=== PATIENT | male | born 1945 | race Caucasian/White ===

== ENCOUNTER 2016-10-16 10:24 | Observation (INO) | payer MEDICARE, BC ==
[2016-10-16] MEDS ORDERED: Ondansetron 4 MG/2 ML SDV IVPUSH ONE (10:57)
[2016-10-16] MEDS ORDERED: Sodium Chloride 0.9% 1,000 ML IV ONE (10:57)
--- NOTE | 2016-10-16 10:58 | EDM.PDOC ---
ED HPI GENERAL MEDICAL PROBLEM - General Chief Complaint: Gastrointestinal Problem Stated Complaint: STOMACH ACHE Time Seen by Provider: 10/16/16 10:40 Source of Information: Reports: Patient History Limitations: Reports: No Limitations - History of Present Illness INITIAL COMMENTS - FREE TEXT/NARRATIVE: History of present illness: [71-year-old male comes in with complaint of abdominal pain since yesterday at 3 :00. Patient indicates he has some nausea without vomiting and denies any diarrhea. Patient thought it might be food poisoning but since it has continued on into this morning he came in with desire to be evaluated] Review of systems: As per history of present illness and below otherwise all systems reviewed and negative. Past medical history: As per history of present illness and as reviewed below otherwise noncontributory. Surgical history: As per history of present illness and as reviewed below otherwise noncontributory. Social history: No reported history of drug or alcohol abuse. Family history: As per history of present illness and as reviewed below otherwise noncontributory. Physical exam: HEENT: Atraumatic, normocephalic, pupils reactive, negative for conjunctival pallor or scleral icterus, mucous membranes moist, throat clear, neck supple, nontender, trachea midline. Lungs: Clear to auscultation, breath sounds equal bilaterally, chest nontender. Heart: S1S2, regular, negative for clicks, rubs, or JVD. Abdomen: Firm protuberant abdomen that is diffusely tender throughout but right is notably more tender than left. Negative for masses or hepatosplenomegaly. Negative for costovertebral tenderness. Pelvis: Stable nontender. Genitourinary: Deferred. Rectal: Deferred. Extremities: Atraumatic, negative for cords or calf pain. Neurovascular unremarkable. Neuro: Awake, alert, oriented. Cranial nerves II through XII unremarkable. Cerebellum unremarkable. Motor and sensory unremarkable throughout. Exam nonfocal. Spoke with Dr. Paredes and she is present to evaluate patient at the bedside. Diagnostics: [CBC, CMP, lipase, amylase] Therapeutics: [IV fluid, Zofran, Zosyn] Impression: [#1 acute appendicitis] Plan: [Mid to Dr. Paredes for a planned lap appendectomy] Definitive disposition and diagnosis as appropriate pending reevaluation and review of above. Lower Abdomen Pain Score (Numeric/FACES): 7 - Related Data Allergies Allergy/AdvReac Type Severity Reaction Status Date / Time No Known Allergies Allergy Verified 10/16/16 10:31 Home Meds: Home Meds . [No Known Home Meds] 09/30/14 [History] Past Medical History Respiratory History: Reports: Other (See Below) Other Respiratory History: Reports believes he has sleep apnea, no machine Other Genitourinary History: Nocturia - Past Surgical History GI Surgical History: Reports: Cholecystectomy Other Neurological Surgeries/Procedures: Back surgery Other Musculoskeletal Surgeries/Procedures:: Rotator Cuff repair, BAck surgery Social & Family History - Family History Family Medical History: Noncontributory - Tobacco Use Smoking Status *Q: Former Smoker Used Tobacco, but Quit: Yes Month Tobacco Last Used: 20years ago - Caffeine Use Caffeine Use: Reports: Coffee - Alcohol Use Days Per Week of Alcohol Use: 7 Number of Drinks Per Day: 2 Total Drinks Per Week: 14 - Recreational Drug Use Recreational Drug Use: No Drug Use in Last 12 Months: No ED ROS GENERAL - Review of Systems Review Of Systems: See Below (History of present illness) ED EXAM, GI/ABD - Physical Exam Exam: See Below (History of present illness) Course - Vital Signs Last Recorded V/S: Last Vital Signs Temp 36.6 C 10/16/16 10:33 Pulse 107 H 10/16/16 10:33 Resp 16 10/16/16 10:33 BP 124/89 10/16/16 10:33 Pulse Ox 98 10/16/16 10:33 - Orders/Labs/Meds Orders: Active Orders 24 hr Category Date Time Status Abdomen Pelvis w Cont [CT] Stat Exams 10/16/16 11:46 Ordered UA W/MICROSCOPIC [URIN] Stat Lab 10/16/16 10:57 Uncollected Labs: Laboratory Tests 10/16/16 10/16/16 Range/Units 11:06 11:06 WBC 21.74 H (4.0-11.0) K/uL RBC 5.31 (4.50-5.90) M/uL Hgb 16.0 (13.0-17.0) g/dL Hct 47.5 (38.0-50.0) % MCV 89.5 (80.0-98.0) fL MCH 30.1 (27.0-32.0) pg MCHC 33.7 (31.0-37.0) g/dL RDW Std Deviation 45.8 (28.0-62.0) fl RDW Coeff of Sunday 14 (11.0-15.0) % Plt Count 253 (150-400) K/uL MPV 10.60 (7.40-12.00) fL Neut % (Auto) 84.8 H (48.0-80.0) % Lymph % (Auto) 6.0 L (16.0-40.0) % [place] % (Auto) 9.2 (0.0-15.0) % Eos % (Auto) 0.0 (0.0-7.0) % Baso % (Auto) 0.0 (0.0-1.5) % Neut # (Auto) 18.4 H (1.4-5.7) K/uL Lymph # (Auto) 1.3 (0.6-2.4) K/uL [place] # (Auto) 2.0 H (0.0-0.8) K/uL Eos # (Auto) 0.0 (0.0-0.7) K/uL Baso # (Auto) 0.0 (0.0-0.1) K/uL Nucleated RBC % 0.0 /100WBC Nucleated RBCs # 0 K/uL Sodium 139 (136-146) mmol/L Potassium 4.8 (3.5-5.1) mmol/L Chloride 105 (98-110) mmol/L Carbon Dioxide 22 (21-31) mmol/L BUN 21 (6.0-23.0) mg/dL Creatinine 1.2 (0.6-1.5) mg/dL Est Cr Clr Drug Dosing 61.88 mL/min Estimated GFR (MDRD) > 60.0 ml/min Glucose 117 H (60-110) mg/dL Calcium 9.9 (8.8-10.8) mg/dL Total Bilirubin 1.1 (0.1-1.5) mg/dL AST 34 (5-40) IU/L ALT 56 H (8-54) IU/L Alkaline Phosphatase 80 (40-150) Total Protein 7.7 (6.0-8.0) g/dL Albumin 4.2 (3.4-4.8) g/dL Globulin 3.5 (2.0-3.5) g/dL Albumin/Globulin Ratio 1.2 L (1.3-2.8) Amylase 43 (10-90) U/L Lipase 13 (7-80) U/L Meds: Medications Discontinued Medications Generic Name Dose Route Start Last Admin Trade Name Luke PRN Reason Stop Dose Admin Sodium Chloride 1,000 mls @ 999 mls/hr 10/16/16 10:57 10/16/16 11:17 Normal Saline IV 10/16/16 11:57 999 mls/hr STAT ONE Administration Iopamidol 100 ml 10/16/16 12:19 10/16/16 12:27 Isovue Multipack-370 (76%) IVPUSH 10/16/16 12:20 100 ml ONETIME STA Administration Ketorolac Tromethamine 30 mg 10/16/16 12:09 10/16/16 12:27 Toradol IVPUSH 10/16/16 12:10 30 mg ONETIME ONE Administration Morphine Sulfate 2 mg 10/16/16 12:09 10/16/16 12:30 Morphine IVPUSH 10/16/16 12:10 2 mg ONETIME ONE Administration Ondansetron HCl 4 mg 10/16/16 10:57 10/16/16 11:18 Zofran IVPUSH 10/16/16 10:58 4 mg ONETIME ONE Administration Departure - Departure Time of Disposition: 14:01 Disposition: Admitted As Inpatient 68 Condition: Good Clinical Impression: Appendicitis - Discharge Information Referrals: PCP,None [Primary Care Provider] - Forms: ED Department Discharge - My Orders Last 24 Hours: My Active Orders 10/16/16 10:57 UA W/MICROSCOPIC [URIN] Stat 10/16/16 11:46 Abdomen Pelvis w Cont [CT] Stat - Assessment/Plan Last 24 Hours: My Active Orders 10/16/16 10:57 UA W/MICROSCOPIC [URIN] Stat 10/16/16 11:46 Abdomen Pelvis w Cont [CT] Stat
[2016-10-16 11:44] LABS: CHLORIDE,CL 105 mmol/L (98-110); SODIUM,NA 139 mmol/L (136-146)
[2016-10-16] MEDS ORDERED: Morphine 2 MG/ML Syringe IVPUSH ONE (12:09)
[2016-10-16] MEDS ORDERED: Ketorolac 30 MG/ML SDV IVPUSH ONE (12:09)
[2016-10-16] MEDS ORDERED: Iopamidol 755 MG/ML 500 ML Multipack Bottle IVPUSH STA (12:19)
[2016-10-16] MEDS ORDERED: Piperacillin/Tazobactam 3.375 GM in Sodium Chloride 0.9% 50 ML IV ONE ×2 (14:02→17:00)
--- NOTE | 2016-10-16 14:18 | PCM.HP ---
H&P History of Present Illness - General Date of Service: 10/16/16 Admit Problem/Dx: Admission Diagnosis/Problem Admission Diagnosis/Problem Appendicitis Source of Information: Patient History Limitations: Reports: No Limitations - History of Present Illness Initial Comments - Free Text/Narative: Patient is a 71 year old male who presents with lower abdominal pain since 3 pm yesterday afternoon. It came on suddenly. It is made worse with movement and palpation. He describes it as a burning sensation. It is associated with chills , bloating and nausea. He has never had anything like this happen before. He is still passing gas and had a loose bowel movement this morning. The pain is similar in severity to an episode of acute cholecystitis he had several years back. My partner performed his laparoscopic cholecystectomy and repaired his umbilical hernia at the same time. 2 years ago he underwent a colonoscopy. He had one polyp removed. Before this he had no change in his bowel or bladder habits. Lower Abdomen Pain Score (Numeric/FACES): 7 - Related Data Allergies/Adverse Reactions: Allergies Allergy/AdvReac Type Severity Reaction Status Date / Time No Known Allergies Allergy Verified 10/16/16 10:31 Home Medications: Home Meds . [No Known Home Meds] 09/30/14 [History] Past Medical History Respiratory History: Reports: Other (See Below) Other Respiratory History: Reports believes he has sleep apnea, no machine Other Genitourinary History: Nocturia - Past Surgical History GI Surgical History: Reports: Cholecystectomy, Colonoscopy, Hernia, Abdominal, Hernia, Inguinal Other Neurological Surgeries/Procedures: Back surgery Other Musculoskeletal Surgeries/Procedures:: Rotator Cuff repair, BAck surgery Social & Family History - Family History Family Medical History: Noncontributory - Tobacco Use Smoking Status *Q: Former Smoker Used Tobacco, but Quit: Yes Month Tobacco Last Used: 20years ago - Caffeine Use Caffeine Use: Reports: Coffee - Alcohol Use Days Per Week of Alcohol Use: 7 Number of Drinks Per Day: 2 Total Drinks Per Week: 14 - Recreational Drug Use Recreational Drug Use: No Drug Use in Last 12 Months: No H&P Review of Systems - Review of Systems: Review Of Systems: ROS reveals no pertinent complaints other than HPI. Exam - Exam Exam: See Below - Vital Signs Vital Signs: Last Vital Signs Temp 36.6 C 10/16/16 10:33 Pulse 107 H 10/16/16 10:33 Resp 16 10/16/16 10:33 BP 124/89 10/16/16 10:33 Pulse Ox 98 10/16/16 10:33 Weight: 95 kg - Exam General: Alert, Oriented HEENT: Hearing Intact, Mucosa Moist & [place], Nares Patent, Posterior Pharynx Clear, Pupils Equal, Pupils Reactive Neck: Supple, Trachea Midline Lungs: Clear to Auscultation, Normal Respiratory Effort Cardiovascular: Regular Rate, Regular Rhythm GI/Abdominal Exam: Soft, Distended, Tender ([place]) Extremities: Normal Inspection - Patient Data Lab Results Last 24 hrs: Laboratory Results - last 24 hr 10/16/16 10/16/16 10/16/16 Range/Units 11:06 11:06 14:05 WBC 21.74 H (4.0-11.0) K/uL RBC 5.31 (4.50-5.90) M/uL Hgb 16.0 (13.0-17.0) g/dL Hct 47.5 (38.0-50.0) % MCV 89.5 (80.0-98.0) fL MCH 30.1 (27.0-32.0) pg MCHC 33.7 (31.0-37.0) g/dL RDW Std Deviation 45.8 (28.0-62.0) fl RDW Coeff of Sunday 14 (11.0-15.0) % Plt Count 253 (150-400) K/uL MPV 10.60 (7.40-12.00) fL Neut % (Auto) 84.8 H (48.0-80.0) % Lymph % (Auto) 6.0 L (16.0-40.0) % [place] % (Auto) 9.2 (0.0-15.0) % Eos % (Auto) 0.0 (0.0-7.0) % Baso % (Auto) 0.0 (0.0-1.5) % Neut # (Auto) 18.4 H (1.4-5.7) K/uL Lymph # (Auto) 1.3 (0.6-2.4) K/uL [place] # (Auto) 2.0 H (0.0-0.8) K/uL Eos # (Auto) 0.0 (0.0-0.7) K/uL Baso # (Auto) 0.0 (0.0-0.1) K/uL Nucleated RBC % 0.0 /100WBC Nucleated RBCs # 0 K/uL Sodium 139 (136-146) mmol/L Potassium 4.8 (3.5-5.1) mmol/L Chloride 105 (98-110) mmol/L Carbon Dioxide 22 (21-31) mmol/L BUN 21 (6.0-23.0) mg/dL Creatinine 1.2 (0.6-1.5) mg/dL Est Cr Clr Drug Dosing 61.88 mL/min Estimated GFR (MDRD) > 60.0 ml/min Glucose 117 H (60-110) mg/dL Calcium 9.9 (8.8-10.8) mg/dL Total Bilirubin 1.1 (0.1-1.5) mg/dL AST 34 (5-40) IU/L ALT 56 H (8-54) IU/L Alkaline Phosphatase 80 (40-150) Total Protein 7.7 (6.0-8.0) g/dL Albumin 4.2 (3.4-4.8) g/dL Globulin 3.5 (2.0-3.5) g/dL Albumin/Globulin Ratio 1.2 L (1.3-2.8) Amylase 43 (10-90) U/L Lipase 13 (7-80) U/L Urine Color YELLOW Urine Appearance CLEAR Urine pH 5.5 (5.0-8.0) Ur Specific [place] 1.010 (1.001-1.035) Urine Protein NEGATIVE (NEGATIVE) mg/dL Urine Glucose (UA) NEGATIVE (NEGATIVE) mg/dL Urine Ketones 15 H (NEGATIVE) mg/dL Urine Occult Blood NEGATIVE (NEGATIVE) Urine Nitrite NEGATIVE (NEGATIVE) Urine Bilirubin NEGATIVE (NEGATIVE) Urine Urobilinogen 1.0 (<2.0) EU/dL Ur Leukocyte Esterase NEGATIVE (NEGATIVE) Result Diagrams: 10/16/16 11:06 10/16/16 11:06 *Q Meaningful Use (ADM) - VTE *Q VTE Criteria *Q: - Stroke *Q Stroke Criteria *Q: - AMI *Q AMI Criteria *Q: - Problem List (1) Appendicitis SNOMED Code(s): 84971658 ICD Code: K37 - UNSPECIFIED APPENDICITIS Status: Acute Current Visit: Yes Problem List Initiated/Reviewed/Updated: Yes Orders Last 24hrs: Active Orders 24 hr Category Date Time Status Patient Status [ADT] Stat ADT 10/16/16 14:03 Active Abdomen Pelvis w Cont [CT] Stat Exams 10/16/16 11:46 Taken UA W/MICROSCOPIC [URIN] Stat Lab 10/16/16 14:05 Results Piperacillin/Tazobactam [Piperacil-Tazobact] 3.375 gm Med 10/16/16 14:02 Active Sodium Chloride 0.9% [Normal Saline] 50 ml IV ONETIME Medication Orders Piperacillin Sod/Tazobactam (Sod 3.375 gm/ Sodium Chloride) 50 mls @ 100 mls/ hr IV ONETIME ONE Stop: 10/16/16 14:31 Assessment/Plan Comment:: Patient had a CT performed that showed evidence of a fecolith and dilated appendix. He has a WBC of 20K with a left shift. The patient and I discussed the pathophysiology of acute appendicitis. The treatment for this is removal of the appendix. We discussed the laparoscopic and open approach. Should I be unable to perform this safely I will convert from laparoscopic to open. We discussed the risks including bleeding, infection, or damage to surrounding structures. I explained that there is a small possibility of this being caused by a malignancy. Should that be the case he may need a more extensive procedure. The patient verbalized understanding and wishes to proceed. He will be admitted post operatively for monitoring. He last ate yesterday afternoon. Will keep him NPO, give IVF, and IV antibiotics.
[2016-10-16] MEDS ORDERED: Bupivacaine 0.5% 30 ML SDV ONE (14:20)
[2016-10-16] MEDS ORDERED: Lidocaine 2% 5 ML SDV ONE (14:32)
[2016-10-16] MEDS ORDERED: Succinylcholine/Normal Saline 200 MG/10 ML Syringe ONE (14:32)
[2016-10-16] MEDS ORDERED: Dexamethasone 4 MG/ML 5 ML MDV ONE (14:32)
[2016-10-16] MEDS ORDERED: Rocuronium 10 MG/ML 10 ML Syringe ONE (14:32)
[2016-10-16] MEDS ORDERED: Ondansetron 4 MG/2 ML SDV ONE (14:32)
[2016-10-16] MEDS ORDERED: Propofol 200 MG/20 ML SDV ONE (14:33)
[2016-10-16] MEDS ORDERED: fentaNYL 100 MCG/2 ML SDV ONE ×2 (14:33→15:34)
[2016-10-16] MEDS ORDERED: Midazolam 1 MG/ML 2 ML SDV ONE (14:33)
--- NOTE | 2016-10-16 14:47 | PCM.PREANE ---
Preanesthetic Assessment - Anesthesia/Transfusion/Family Hx Anesthesia History: Prior Anesthesia Without Reaction Other Type of Anesthesia Reaction Comment: Denies any known problem in past,no known family hx: problems Family History of Anesthesia Reaction: No - Review of Systems Gastrointestinal: Abdominal Pain, Nausea Other: Reports: None - Physical Assessment NPO Status Date: 10/16/16 NPO Status Time: 10:00 O2 Sat by Pulse Oximetry: 98 Respiratory Rate: 16 Vital Signs: Last Vital Signs Temp 36.6 C 10/16/16 10:33 Pulse 107 H 10/16/16 10:33 Resp 16 10/16/16 10:33 BP 124/89 10/16/16 10:33 Pulse Ox 98 10/16/16 10:33 Height: 5 ft 11 in Weight: 95 kg ASA Class: 2E Mental Status: Alert & Oriented x3 Dentition: Reports: Partial (bottom) Thyro-Mental Finger Breadths: 3 Mouth Opening Finger Breadths: 3 ROM/Head Extension: Full - Lab Values: Laboratory Last Values WBC 21.74 K/uL (4.0-11.0) H 10/16/16 11:06 RBC 5.31 M/uL (4.50-5.90) 10/16/16 11:06 Hgb 16.0 g/dL (13.0-17.0) 10/16/16 11:06 Hct 47.5 % (38.0-50.0) 10/16/16 11:06 MCV 89.5 fL (80.0-98.0) 10/16/16 11:06 MCH 30.1 pg (27.0-32.0) 10/16/16 11:06 MCHC 33.7 g/dL (31.0-37.0) 10/16/16 11:06 RDW Std Deviation 45.8 fl (28.0-62.0) 10/16/16 11:06 RDW Coeff of Sunday 14 % (11.0-15.0) 10/16/16 11:06 Plt Count 253 K/uL (150-400) 10/16/16 11:06 MPV 10.60 fL (7.40-12.00) 10/16/16 11:06 Neut % (Auto) 84.8 % (48.0-80.0) H 10/16/16 11:06 Lymph % (Auto) 6.0 % (16.0-40.0) L 10/16/16 11:06 [place] % (Auto) 9.2 % (0.0-15.0) 10/16/16 11:06 Eos % (Auto) 0.0 % (0.0-7.0) 10/16/16 11:06 Baso % (Auto) 0.0 % (0.0-1.5) 10/16/16 11:06 Neut # (Auto) 18.4 K/uL (1.4-5.7) H 10/16/16 11:06 Lymph # (Auto) 1.3 K/uL (0.6-2.4) 10/16/16 11:06 [place] # (Auto) 2.0 K/uL (0.0-0.8) H 10/16/16 11:06 Eos # (Auto) 0.0 K/uL (0.0-0.7) 10/16/16 11:06 Baso # (Auto) 0.0 K/uL (0.0-0.1) 10/16/16 11:06 Nucleated RBC % 0.0 /100WBC 10/16/16 11:06 Nucleated RBCs # 0 K/uL 10/16/16 11:06 Sodium 139 mmol/L (136-146) 10/16/16 11:06 Potassium 4.8 mmol/L (3.5-5.1) 10/16/16 11:06 Chloride 105 mmol/L (98-110) 10/16/16 11:06 Carbon Dioxide 22 mmol/L (21-31) 10/16/16 11:06 BUN 21 mg/dL (6.0-23.0) 10/16/16 11:06 Creatinine 1.2 mg/dL (0.6-1.5) 10/16/16 11:06 Est Cr Clr Drug Dosing 61.88 mL/min 10/16/16 11:06 Estimated GFR (MDRD) > 60.0 ml/min 10/16/16 11:06 Glucose 117 mg/dL (60-110) H 10/16/16 11:06 Calcium 9.9 mg/dL (8.8-10.8) 10/16/16 11:06 Total Bilirubin 1.1 mg/dL (0.1-1.5) 10/16/16 11:06 AST 34 IU/L (5-40) 10/16/16 11:06 ALT 56 IU/L (8-54) H 10/16/16 11:06 Alkaline Phosphatase 80 (40-150) 10/16/16 11:06 Total Protein 7.7 g/dL (6.0-8.0) 10/16/16 11:06 Albumin 4.2 g/dL (3.4-4.8) 10/16/16 11:06 Globulin 3.5 g/dL (2.0-3.5) 10/16/16 11:06 Albumin/Globulin Ratio 1.2 (1.3-2.8) L 10/16/16 11:06 Amylase 43 U/L (10-90) 10/16/16 11:06 Lipase 13 U/L (7-80) 10/16/16 11:06 Urine Color YELLOW 10/16/16 14:05 Urine Appearance CLEAR 10/16/16 14:05 Urine pH 5.5 (5.0-8.0) 10/16/16 14:05 Ur Specific [place] 1.010 (1.001-1.035) 10/16/16 14:05 Urine Protein NEGATIVE mg/dL (NEGATIVE) 10/16/16 14:05 Urine Glucose (UA) NEGATIVE mg/dL (NEGATIVE) 10/16/16 14:05 Urine Ketones 15 mg/dL (NEGATIVE) H 10/16/16 14:05 Urine Occult Blood NEGATIVE (NEGATIVE) 10/16/16 14:05 Urine Nitrite NEGATIVE (NEGATIVE) 10/16/16 14:05 Urine Bilirubin NEGATIVE (NEGATIVE) 10/16/16 14:05 Urine Urobilinogen 1.0 EU/dL (<2.0) 10/16/16 14:05 Ur Leukocyte Esterase NEGATIVE (NEGATIVE) 10/16/16 14:05 Urine RBC 0-3 (0-2/HPF) 10/16/16 14:05 Urine WBC 0-2 (0-5/HPF) 10/16/16 14:05 Ur Epithelial Cells RARE (NONE-FEW) 10/16/16 14:05 Urine Bacteria RARE (NEGATIVE) 10/16/16 14:05 - Allergies Allergies/Adverse Reactions: Allergies Allergy/AdvReac Type Severity Reaction Status Date / Time No Known Allergies Allergy Verified 10/16/16 10:31 - Acknowledgements Anesthesia Type Planned: General Anesthesia Pt an Appropriate Candidate for the Planned Anesthesia: Yes Alternatives and Risks of Anesthesia Discussed w Pt/Guardian: Yes Pt/Guardian Understands and Agrees with Anesthesia Plan: Yes PreAnesthesia Questionnaire Respiratory History: Reports: Other (See Below) Other Respiratory History: Reports believes he has sleep apnea, no machine Other Genitourinary History: Nocturia - Past Surgical History GI Surgical History: Reports: Cholecystectomy, Colonoscopy, Hernia, Abdominal, Hernia, Inguinal Other Neurological Surgeries/Procedures: Back surgery Other Musculoskeletal Surgeries/Procedures:: Rotator Cuff repair, BAck surgery - SUBSTANCE USE Smoking Status *Q: Former Smoker Days Per Week of Alcohol Use: 7 Number of Drinks Per Day: 2 Total Drinks Per Week: 14 Recreational Drug Use History: No - HOME MEDS Home Medications: Home Meds . [No Known Home Meds] 09/30/14 [History] - CURRENT (IN HOUSE) MEDS Current Meds: Current Medications Discontinued Medications Bupivacaine HCl (Marcaine 0.5%) Confirm Administered Dose 30 ml .ROUTE .STK-MED ONE Stop: 10/16/16 14:21 Dexamethasone (Dexamethasone) Confirm Administered Dose 20 mg .ROUTE .STK-MED ONE Stop: 10/16/16 14:33 Fentanyl (Sublimaze) Confirm Administered Dose 200 mcg .ROUTE .STK-MED ONE Stop: 10/16/16 14:34 Sodium Chloride (Normal Saline) 1,000 mls @ 999 mls/hr IV STAT ONE Stop: 10/16/16 11:57 Last Admin: 10/16/16 11:17 Dose: 999 mls/hr Piperacillin Sod/Tazobactam (Sod 3.375 gm/ Sodium Chloride) 50 mls @ 100 mls/ hr IV ONETIME ONE Stop: 10/16/16 14:31 Iopamidol (Isovue Multipack-370 (76%)) 100 ml IVPUSH ONETIME STA Stop: 10/16/16 12:20 Last Admin: 10/16/16 12:27 Dose: 100 ml Ketorolac Tromethamine (Toradol) 30 mg IVPUSH ONETIME ONE Stop: 10/16/16 12:10 Last Admin: 10/16/16 12:27 Dose: 30 mg Lidocaine (Xylocaine-Mpf 2%) Confirm Administered Dose 5 ml .ROUTE .STK-MED ONE Stop: 10/16/16 14:33 Midazolam HCl (Versed 1 Mg/Ml) Confirm Administered Dose 2 mg .ROUTE .STK-MED ONE Stop: 10/16/16 14:34 Morphine Sulfate (Morphine) 2 mg IVPUSH ONETIME ONE Stop: 10/16/16 12:10 Last Admin: 10/16/16 12:30 Dose: 2 mg Ondansetron HCl (Zofran) 4 mg IVPUSH ONETIME ONE Stop: 10/16/16 10:58 Last Admin: 10/16/16 11:18 Dose: 4 mg Ondansetron HCl (Zofran) Confirm Administered Dose 4 mg .ROUTE .STK-MED ONE Stop: 10/16/16 14:33 Propofol (Diprivan 20 Ml) Confirm Administered Dose 200 mg .ROUTE .STK-MED ONE Stop: 10/16/16 14:34 Rocuronium [place] (Zemuron) Confirm Administered Dose 100 mg .ROUTE .STK-MED ONE Stop: 10/16/16 14:33 Succinylcholine Chloride (Succinylcholine In Ns Pf) Confirm Administered Dose 200 mg .ROUTE .STK-MED ONE Stop: 10/16/16 14:33
[2016-10-16] MEDS ORDERED: ePHEDrine 50 MG/ML SDV ONE (15:07)
[2016-10-16] MEDS ORDERED: HYDROmorphone 2 MG/ML Syringe ONE (15:25)
[2016-10-16] MEDS ORDERED: fentaNYL 100 MCG/2 ML SDV IVPUSH PRN (15:43)
[2016-10-16] MEDS ORDERED: HYDROmorphone 1 MG/ML Syringe IVPUSH PRN (16:06)
[2016-10-16] MEDS ORDERED: diphenhydrAMINE 25 MG Cap PO PRN (16:06)
--- NOTE | 2016-10-16 16:06 | PCM.OPNOTE ---
- General Post-Op/Procedure Note Date of Surgery/Procedure: 10/16/16 Operative Procedure(s): Laparoscopic appendectomy Findings: Non-perforated appendix but appendix appeared inflamed and partially necrotic Pre Op Diagnosis: Appendicitis Post-Op Diagnosis: same Anesthesia Technique: General ET Tube Primary Surgeon: Armida Judge Fluid Replacement, Intraop: 1,500 Output, Urine Amount: 300 EBL in mLs: 10 Condition: Fair
[2016-10-16] MEDS ORDERED: Ondansetron 4 MG/2 ML SDV IVPUSH PRN (16:12)
--- NOTE | 2016-10-16 16:30 | PCM.POSTAN ---
POST ANESTHESIA ASSESSMENT - MENTAL STATUS Mental Status: Alert, Oriented - RESPIRATORY Respiratory Status: Respiratory Rate WNL, Airway Patent, O2 Saturation Stable - CARDIOVASCULAR CV Status: Pulse Rate WNL, Blood Pressure Stable - GASTROINTESTINAL GI Status: No Symptoms - PAIN Pain Score: 0 - POST OP HYDRATION Hydration Status: Adequate & Stable
[2016-10-16] MEDS: Lactated Ringers 1,000 ML IV SCH (18:35)
[2016-10-17] MEDS: Piperacillin/Tazobactam 3.375 GM in Sodium Chloride 0.9% 50 ML IV SCH ×4 (00:05→23:01)
[2016-10-17] MEDS: Acetaminophen/oxyCODONE 325-5 MG Tab PO PRN ×3 (00:22→20:55)
[2016-10-17] MEDS: Lactated Ringers 1,000 ML IV SCH (05:50)
--- NOTE | 2016-10-17 08:44 | PCM48HPAN ---
Post Anesthesia Note - EVALUATION WITHIN 48HRS OF ANESTHETIC Vital Signs in Normal Range: Yes Patient Participated in Evaluation: Yes Respiratory Function Stable: Yes Airway Patent: Yes Cardiovascular Function Stable: Yes Hydration Status Stable: Yes Pain Control Satisfactory: Yes Nausea and Vomiting Control Satisfactory: Yes Mental Status Recovered: Yes
--- NOTE | 2016-10-17 09:07 | PCM.SURGPN ---
- General Info Date of Service: 10/16/16 Date of Surgery/Procedure: 10/17/16 POD#: 1 Post-Op Diagnosis: appendicitis Admission Diagnosis/Problem: Appendicitis Functional Status: Reports: Pain Controlled, Tolerating Diet, Ambulating, Urinating - Review of Systems General: Reports: No Symptoms Gastrointestinal: Reports: Other (No flatus, distension ). Denies: Flatus, Nausea - Patient Data Vitals - Most Recent: Last Vital Signs Temp 37.0 C 10/17/16 08:00 Pulse 84 10/17/16 08:00 Resp 18 10/17/16 08:00 BP 97/47 L 10/17/16 08:00 Pulse Ox 92 L 10/17/16 08:00 Weight - Most Recent: 95 kg I&O - Last 24 Hours: Intake & Output 10/16/16 10/17/16 10/17/16 22:59 06:59 14:59 Intake Total 3450 1500 Output Total 900 420 Balance 2550 1080 Lab Results Last 24 Hrs: Laboratory Results - last 24 hr 10/16/16 10/16/16 10/16/16 Range/Units 11:06 11:06 14:05 WBC 21.74 H (4.0-11.0) K/uL RBC 5.31 (4.50-5.90) M/uL Hgb 16.0 (13.0-17.0) g/dL Hct 47.5 (38.0-50.0) % MCV 89.5 (80.0-98.0) fL MCH 30.1 (27.0-32.0) pg MCHC 33.7 (31.0-37.0) g/dL RDW Std Deviation 45.8 (28.0-62.0) fl RDW Coeff of Sunday 14 (11.0-15.0) % Plt Count 253 (150-400) K/uL MPV 10.60 (7.40-12.00) fL Neut % (Auto) 84.8 H (48.0-80.0) % Lymph % (Auto) 6.0 L (16.0-40.0) % [place] % (Auto) 9.2 (0.0-15.0) % Eos % (Auto) 0.0 (0.0-7.0) % Baso % (Auto) 0.0 (0.0-1.5) % Neut # (Auto) 18.4 H (1.4-5.7) K/uL Lymph # (Auto) 1.3 (0.6-2.4) K/uL [place] # (Auto) 2.0 H (0.0-0.8) K/uL Eos # (Auto) 0.0 (0.0-0.7) K/uL Baso # (Auto) 0.0 (0.0-0.1) K/uL Nucleated RBC % 0.0 /100WBC Nucleated RBCs # 0 K/uL Sodium 139 (136-146) mmol/L Potassium 4.8 (3.5-5.1) mmol/L Chloride 105 (98-110) mmol/L Carbon Dioxide 22 (21-31) mmol/L BUN 21 (6.0-23.0) mg/dL Creatinine 1.2 (0.6-1.5) mg/dL Est Cr Clr Drug Dosing 61.88 mL/min Estimated GFR (MDRD) > 60.0 ml/min Glucose 117 H (60-110) mg/dL Calcium 9.9 (8.8-10.8) mg/dL Total Bilirubin 1.1 (0.1-1.5) mg/dL AST 34 (5-40) IU/L ALT 56 H (8-54) IU/L Alkaline Phosphatase 80 (40-150) Total Protein 7.7 (6.0-8.0) g/dL Albumin 4.2 (3.4-4.8) g/dL Globulin 3.5 (2.0-3.5) g/dL Albumin/Globulin Ratio 1.2 L (1.3-2.8) Amylase 43 (10-90) U/L Lipase 13 (7-80) U/L Urine Color YELLOW Urine Appearance CLEAR Urine pH 5.5 (5.0-8.0) Ur Specific [place] 1.010 (1.001-1.035) Urine Protein NEGATIVE (NEGATIVE) mg/dL Urine Glucose (UA) NEGATIVE (NEGATIVE) mg/dL Urine Ketones 15 H (NEGATIVE) mg/dL Urine Occult Blood NEGATIVE (NEGATIVE) Urine Nitrite NEGATIVE (NEGATIVE) Urine Bilirubin NEGATIVE (NEGATIVE) Urine Urobilinogen 1.0 (<2.0) EU/dL Ur Leukocyte Esterase NEGATIVE (NEGATIVE) Urine RBC 0-3 (0-2/HPF) Urine WBC 0-2 (0-5/HPF) Ur Epithelial Cells RARE (NONE-FEW) Urine Bacteria RARE (NEGATIVE) 10/17/16 Range/Units 05:29 WBC 16.44 H (4.0-11.0) K/uL RBC 4.41 L (4.50-5.90) M/uL Hgb 13.0 (13.0-17.0) g/dL Hct 40.3 (38.0-50.0) % MCV 91.4 (80.0-98.0) fL MCH 29.5 (27.0-32.0) pg MCHC 32.3 (31.0-37.0) g/dL RDW Std Deviation 47.7 (28.0-62.0) fl RDW Coeff of Sunday 14 (11.0-15.0) % Plt Count 205 (150-400) K/uL MPV 10.70 (7.40-12.00) fL Neut % (Auto) 82.6 H (48.0-80.0) % Lymph % (Auto) 7.3 L (16.0-40.0) % [place] % (Auto) 10.0 (0.0-15.0) % Eos % (Auto) 0.0 (0.0-7.0) % Baso % (Auto) 0.1 (0.0-1.5) % Neut # (Auto) 13.6 H (1.4-5.7) K/uL Lymph # (Auto) 1.2 (0.6-2.4) K/uL [place] # (Auto) 1.7 H (0.0-0.8) K/uL Eos # (Auto) 0.0 (0.0-0.7) K/uL Baso # (Auto) 0.0 (0.0-0.1) K/uL Nucleated RBC % 0.0 /100WBC Nucleated RBCs # 0 K/uL Sodium (136-146) mmol/L Potassium (3.5-5.1) mmol/L Chloride (98-110) mmol/L Carbon Dioxide (21-31) mmol/L BUN (6.0-23.0) mg/dL Creatinine (0.6-1.5) mg/dL Est Cr Clr Drug Dosing mL/min Estimated GFR (MDRD) ml/min Glucose (60-110) mg/dL Calcium (8.8-10.8) mg/dL Total Bilirubin (0.1-1.5) mg/dL AST (5-40) IU/L ALT (8-54) IU/L Alkaline Phosphatase (40-150) Total Protein (6.0-8.0) g/dL Albumin (3.4-4.8) g/dL Globulin (2.0-3.5) g/dL Albumin/Globulin Ratio (1.3-2.8) Amylase (10-90) U/L Lipase (7-80) U/L Urine Color Urine Appearance Urine pH (5.0-8.0) Ur Specific [place] (1.001-1.035) Urine Protein (NEGATIVE) mg/dL Urine Glucose (UA) (NEGATIVE) mg/dL Urine Ketones (NEGATIVE) mg/dL Urine Occult Blood (NEGATIVE) Urine Nitrite (NEGATIVE) Urine Bilirubin (NEGATIVE) Urine Urobilinogen (<2.0) EU/dL Ur Leukocyte Esterase (NEGATIVE) Urine RBC (0-2/HPF) Urine WBC (0-5/HPF) Ur Epithelial Cells (NONE-FEW) Urine Bacteria (NEGATIVE) Med Orders - Current: Current Medications Diphenhydramine HCl (Benadryl) 25 mg PO Q4H PRN PRN Reason: Itching Fentanyl (Sublimaze) 50 mcg IVPUSH SEECOMMENT PRN PRN Reason: Pain (moderate 4-6) Hydromorphone HCl (Dilaudid) 0.5 mg IVPUSH Q1H PRN PRN Reason: Pain (severe 7-10) Piperacillin Sod/Tazobactam (Sod 3.375 gm/ Sodium Chloride) 50 mls @ 100 mls/ hr IV Q8H [facility] Last Admin: 10/17/16 07:45 Dose: 100 mls/hr Ondansetron HCl (Zofran) 4 mg IVPUSH Q6H PRN PRN Reason: Nausea/Vomiting Oxycodone/Acetaminophen (Percocet 325-5 Mg) 2 tab PO Q4H PRN PRN Reason: Pain (moderate 4-6) Last Admin: 10/17/16 00:22 Dose: 1 tab Senna/Docusate Sodium (Senna Plus) 1 tab PO BID PRN PRN Reason: Constipation Discontinued Medications Bupivacaine HCl (Marcaine 0.5%) Confirm Administered Dose 30 ml .ROUTE .STK-MED ONE Stop: 10/16/16 14:21 Dexamethasone (Dexamethasone) Confirm Administered Dose 20 mg .ROUTE .STK-MED ONE Stop: 10/16/16 14:33 Ephedrine Sulfate (Ephedrine Sulfate) Confirm Administered Dose 50 mg .ROUTE .STK-MED ONE Stop: 10/16/16 15:08 Fentanyl (Sublimaze) Confirm Administered Dose 200 mcg .ROUTE .STK-MED ONE Stop: 10/16/16 14:34 Fentanyl (Sublimaze) Confirm Administered Dose 100 mcg .ROUTE .STK-MED ONE Stop: 10/16/16 15:35 Hydromorphone HCl (Dilaudid) Confirm Administered Dose 2 mg .ROUTE .STK-MED ONE Stop: 10/16/16 15:26 Sodium Chloride (Normal Saline) 1,000 mls @ 999 mls/hr IV STAT ONE Stop: 10/16/16 11:57 Last Admin: 10/16/16 11:17 Dose: 999 mls/hr Piperacillin Sod/Tazobactam (Sod 3.375 gm/ Sodium Chloride) 50 mls @ 100 mls/ hr IV ONETIME ONE Stop: 10/16/16 14:31 Last Admin: 10/16/16 14:49 Dose: 100 mls/hr Acetaminophen (Ofirmev) Confirm Administered Dose 100 mls @ as directed IV .STK- MED ONE Stop: 10/16/16 15:29 Piperacillin Sod/Tazobactam (Sod 3.375 gm/ Sodium Chloride) 50 mls @ 100 mls/ hr IV ONETIME ONE Stop: 10/16/16 17:29 Lactated Ringer's (Ringers, Lactated) 1,000 mls @ 100 mls/hr IV ASDIRECTED JAZZY Last Admin: 10/17/16 05:50 Dose: 100 mls/hr Iopamidol (Isovue Multipack-370 (76%)) 100 ml IVPUSH ONETIME STA Stop: 10/16/16 12:20 Last Admin: 10/16/16 12:27 Dose: 100 ml Ketorolac Tromethamine (Toradol) 30 mg IVPUSH ONETIME ONE Stop: 10/16/16 12:10 Last Admin: 10/16/16 12:27 Dose: 30 mg Lidocaine (Xylocaine-Mpf 2%) Confirm Administered Dose 5 ml .ROUTE .STK-MED ONE Stop: 10/16/16 14:33 Midazolam HCl (Versed 1 Mg/Ml) Confirm Administered Dose 2 mg .ROUTE .STK-MED ONE Stop: 10/16/16 14:34 Morphine Sulfate (Morphine) 2 mg IVPUSH ONETIME ONE Stop: 10/16/16 12:10 Last Admin: 10/16/16 12:30 Dose: 2 mg Ondansetron HCl (Zofran) 4 mg IVPUSH ONETIME ONE Stop: 10/16/16 10:58 Last Admin: 10/16/16 11:18 Dose: 4 mg Ondansetron HCl (Zofran) Confirm Administered Dose 4 mg .ROUTE .STK-MED ONE Stop: 10/16/16 14:33 Propofol (Diprivan 20 Ml) Confirm Administered Dose 200 mg .ROUTE .STK-MED ONE Stop: 10/16/16 14:34 Rocuronium [place] (Zemuron) Confirm Administered Dose 100 mg .ROUTE .STK-MED ONE Stop: 10/16/16 14:33 Succinylcholine Chloride (Succinylcholine In Ns Pf) Confirm Administered Dose 200 mg .ROUTE .STK-MED ONE Stop: 10/16/16 14:33 - Exam Wound/Incisions: Dressing Dry and Intact General: Alert, Oriented Lungs: Clear to Auscultation, Normal Respiratory Effort Cardiovascular: Regular Rate, Regular Rhythm GI/Abdominal Exam: Soft, Non-Tender, Distended - Problem List & Annotations (1) Appendicitis SNOMED Code(s): 51636561 Code(s): K37 - UNSPECIFIED APPENDICITIS Status: Acute Current Visit: Yes - Problem List Review Problem List Initiated/Reviewed/Updated: Yes - My Orders Last 24 Hours: Active Orders 24 hr Category Date Time Status Admission Status [Patient Status] [ADT] Routine ADT 10/17/16 08:59 Ordered Intake and Output [RC] QSHIFT Care 10/16/16 16:10 Active Oxygen Therapy [RC] PRN Care 10/16/16 16:10 Active RT Incentive Spirometry [RC] ASDIRECTED Care 10/16/16 16:06 Active Up ad Isabel [RC] ASDIRECTED Care 10/16/16 16:06 Active Vital Signs [RC] PER UNIT ROUTINE Care 10/16/16 16:10 Active Regular Diet [DIET] Diet 10/17/16 Lunch Active Abdomen Pelvis w Cont [CT] Stat Exams 10/16/16 11:46 Taken CBC W/O DIFF,HEMOGRAM [HEME] Timed Lab 10/17/16 17:00 Ordered Acetaminophen/oxyCODONE [Percocet 325-5 MG] Med 10/16/16 16:06 Active 2 tab PO Q4H PRN Docusate Sodium/Sennosides [Senna Plus] Med 10/16/16 16:06 Active 1 tab PO BID PRN HYDROmorphone [Dilaudid] Med 10/16/16 16:06 Active 0.5 mg IVPUSH Q1H PRN Ondansetron [Zofran] Med 10/16/16 16:12 Active 4 mg IVPUSH Q6H PRN Piperacillin/Tazobactam [Piperacil-Tazobact] 3.375 gm Med 10/16/16 23:00 Active Sodium Chloride 0.9% [Normal Saline] 50 ml IV Q8H diphenhydrAMINE [Benadryl] Med 10/16/16 16:06 Active 25 mg PO Q4H PRN fentaNYL [Sublimaze] Med 10/16/16 15:43 Active 50 mcg IVPUSH SEECOMMENT PRN Resuscitation Status Routine Resus Stat 10/16/16 16:06 Ordered Medication Orders Diphenhydramine HCl (Benadryl) 25 mg PO Q4H PRN PRN Reason: Itching Fentanyl (Sublimaze) 50 mcg IVPUSH SEECOMMENT PRN PRN Reason: Pain (moderate 4-6) Hydromorphone HCl (Dilaudid) 0.5 mg IVPUSH Q1H PRN PRN Reason: Pain (severe 7-10) Piperacillin Sod/Tazobactam (Sod 3.375 gm/ Sodium Chloride) 50 mls @ 100 mls/ hr IV Q8H [facility] Last Admin: 10/17/16 07:45 Dose: 100 mls/hr Infusion: 10/17/16 00:35 Dose: 100 mls/hr Admin: 10/17/16 00:05 Dose: 100 mls/hr Ondansetron HCl (Zofran) 4 mg IVPUSH Q6H PRN PRN Reason: Nausea/Vomiting Oxycodone/Acetaminophen (Percocet 325-5 Mg) 2 tab PO Q4H PRN PRN Reason: Pain (moderate 4-6) Last Admin: 10/17/16 00:22 Dose: 1 tab Senna/Docusate Sodium (Senna Plus) 1 tab PO BID PRN PRN Reason: Constipation - Plan Plan (Free Text/Narrative):: Patient's WBC is 16K this morning down from 21K. His vitals are stable and he is afebrile. His pain is well controlled. He feels distended and has not passed flatus yet. Will D/C IVF and advance diet to regular. Will re-check WBC this evening. Will keep patient until tolerating a regular diet, passing flatus and WBC within normal limits. Will keep IV zosyn for now.
[2016-10-18] MEDS: Acetaminophen/oxyCODONE 325-5 MG Tab PO PRN ×2 (04:41→08:53)
[2016-10-18] MEDS: Piperacillin/Tazobactam 3.375 GM in Sodium Chloride 0.9% 50 ML IV SCH (06:14)
[2016-10-18 08:51] VITALS: BP 132/70
--- NOTE | 2016-10-18 09:07 | PCM.DCSUM1 ---
Discharge Summary - Hospital Course Free Text/Narrative:: Patient is a 71yo M who presented with RLQ pain and nausea for 24 hours. He had a leukocytosis of 21K. A CT of the abdomen showed an enlarged appendix with a fecolith consistent with appendicitis. He was taken to the OR for a laparoscopic appendectomy. His appendix was inflamed with patchy areas of necrosis.There was no adeola perforation. It was removed successfully laparoscopically. He did well post operatively. Given the necrosis I continued IV antibiotics throughout his stay. POD #1 his WBC was still 16K. His diet was slowly advanced. He was ambulatory and his pain was well controlled. His vitals were stable. He was mildly distended so I kept him another day. This morning he is passing gas and denies nausea and vomiting. He is otherwise stable with a WBC of 12K. I will transition him to oral antibiotics and discharge him today. - Discharge Data Discharge Date: 10/18/16 Discharge Disposition: Home, Self-Care 01 Condition: Fair - Discharge Diagnosis/Problem(s) (1) Appendicitis SNOMED Code(s): 67006829 ICD Code: K37 - UNSPECIFIED APPENDICITIS Status: Acute Current Visit: Yes - Patient Summary/Data Operative Procedure(s) Performed: Laparoscopic appendectomy - Patient Instructions Diet: Regular Diet as Tolerated Activity: No Lifting Over 20 Pounds (for four weeks ), Rest and Relax Today Driving: Do Not Drive Showering/Bathing: May Shower, No Tub Bathing/Swimming (for 2 weeks ) Wound/Incision Care: Keep Operative Site/Wound Site Clean and Dry Notify Provider of: Fever, Increased Pain, Swelling and Redness, Drainage, Nausea and/or Vomiting - Discharge Plan Home Medications: Home Meds . [No Known Home Meds] 09/30/14 [History] Forms: ED Department Discharge Referrals: PCP,None [Primary Care Provider] - - General Info Date of Service: 10/18/16 Functional Status: Reports: Pain Controlled, Tolerating Diet, Ambulating, Urinating - Review of Systems General: Reports: No Symptoms Gastrointestinal: Reports: No Symptoms - Patient Data Vitals - Most Recent: Last Vital Signs Temp 37.7 C 10/18/16 08:00 Pulse 81 10/18/16 08:00 Resp 20 10/18/16 08:00 BP 132/70 10/18/16 08:00 Pulse Ox 94 L 10/18/16 08:00 Weight - Most Recent: 95 kg I&O - Last 24 hours: Intake & Output 10/17/16 10/18/16 10/18/16 22:59 06:59 14:59 Intake Total 958 150 Output Total 1300 850 Balance -342 -700 Lab Results - Last 24 hrs: Laboratory Results - last 24 hr 10/17/16 10/18/16 Range/Units 16:47 05:53 WBC 13.08 H 12.17 H (4.0-11.0) K/uL RBC 4.25 L 4.23 L (4.50-5.90) M/uL Hgb 12.8 L 12.6 L (13.0-17.0) g/dL Hct 38.9 38.9 (38.0-50.0) % MCV 91.5 92.0 (80.0-98.0) fL MCH 30.1 29.8 (27.0-32.0) pg MCHC 32.9 32.4 (31.0-37.0) g/dL RDW Std Deviation 48.5 47.8 (28.0-62.0) fl RDW Coeff of Sunday 14 14 (11.0-15.0) % Plt Count 200 187 (150-400) K/uL MPV 10.80 11.00 (7.40-12.00) fL Neut % (Auto) 84.8 H (48.0-80.0) % Lymph % (Auto) 7.6 L (16.0-40.0) % [place] % (Auto) 6.9 (0.0-15.0) % Eos % (Auto) 0.6 (0.0-7.0) % Baso % (Auto) 0.1 (0.0-1.5) % Neut # (Auto) 10.3 H (1.4-5.7) K/uL Lymph # (Auto) 0.9 (0.6-2.4) K/uL [place] # (Auto) 0.8 (0.0-0.8) K/uL Eos # (Auto) 0.1 (0.0-0.7) K/uL Baso # (Auto) 0.0 (0.0-0.1) K/uL Nucleated RBC % 0.0 0.0 /100WBC Nucleated RBCs # 0 0 K/uL Med Orders - Current: Current Medications Diphenhydramine HCl (Benadryl) 25 mg PO Q4H PRN PRN Reason: Itching Fentanyl (Sublimaze) 50 mcg IVPUSH SEECOMMENT PRN PRN Reason: Pain (moderate 4-6) Hydromorphone HCl (Dilaudid) 0.5 mg IVPUSH Q1H PRN PRN Reason: Pain (severe 7-10) Piperacillin Sod/Tazobactam (Sod 3.375 gm/ Sodium Chloride) 50 mls @ 100 mls/ hr IV Q8H [facility] Last Admin: 10/18/16 06:14 Dose: 100 mls/hr Ondansetron HCl (Zofran) 4 mg IVPUSH Q6H PRN PRN Reason: Nausea/Vomiting Oxycodone/Acetaminophen (Percocet 325-5 Mg) 2 tab PO Q4H PRN PRN Reason: Pain (moderate 4-6) Last Admin: 10/18/16 08:53 Dose: 2 tab Senna/Docusate Sodium (Senna Plus) 1 tab PO BID PRN PRN Reason: Constipation Discontinued Medications Bupivacaine HCl (Marcaine 0.5%) Confirm Administered Dose 30 ml .ROUTE .STK-MED ONE Stop: 10/16/16 14:21 Dexamethasone (Dexamethasone) Confirm Administered Dose 20 mg .ROUTE .STK-MED ONE Stop: 10/16/16 14:33 Ephedrine Sulfate (Ephedrine Sulfate) Confirm Administered Dose 50 mg .ROUTE .STK-MED ONE Stop: 10/16/16 15:08 Fentanyl (Sublimaze) Confirm Administered Dose 200 mcg .ROUTE .STK-MED ONE Stop: 10/16/16 14:34 Fentanyl (Sublimaze) Confirm Administered Dose 100 mcg .ROUTE .STK-MED ONE Stop: 10/16/16 15:35 Hydromorphone HCl (Dilaudid) Confirm Administered Dose 2 mg .ROUTE .STK-MED ONE Stop: 10/16/16 15:26 Sodium Chloride (Normal Saline) 1,000 mls @ 999 mls/hr IV STAT ONE Stop: 10/16/16 11:57 Last Admin: 10/16/16 11:17 Dose: 999 mls/hr Piperacillin Sod/Tazobactam (Sod 3.375 gm/ Sodium Chloride) 50 mls @ 100 mls/ hr IV ONETIME ONE Stop: 10/16/16 14:31 Last Admin: 10/16/16 14:49 Dose: 100 mls/hr Acetaminophen (Ofirmev) Confirm Administered Dose 100 mls @ as directed IV .STK- MED ONE Stop: 10/16/16 15:29 Piperacillin Sod/Tazobactam (Sod 3.375 gm/ Sodium Chloride) 50 mls @ 100 mls/ hr IV ONETIME ONE Stop: 10/16/16 17:29 Lactated Ringer's (Ringers, Lactated) 1,000 mls @ 100 mls/hr IV ASDIRECTED JAZZY Last Admin: 10/17/16 05:50 Dose: 100 mls/hr Iopamidol (Isovue Multipack-370 (76%)) 100 ml IVPUSH ONETIME STA Stop: 10/16/16 12:20 Last Admin: 10/16/16 12:27 Dose: 100 ml Ketorolac Tromethamine (Toradol) 30 mg IVPUSH ONETIME ONE Stop: 10/16/16 12:10 Last Admin: 10/16/16 12:27 Dose: 30 mg Lidocaine (Xylocaine-Mpf 2%) Confirm Administered Dose 5 ml .ROUTE .STK-MED ONE Stop: 10/16/16 14:33 Midazolam HCl (Versed 1 Mg/Ml) Confirm Administered Dose 2 mg .ROUTE .STK-MED ONE Stop: 10/16/16 14:34 Morphine Sulfate (Morphine) 2 mg IVPUSH ONETIME ONE Stop: 10/16/16 12:10 Last Admin: 10/16/16 12:30 Dose: 2 mg Ondansetron HCl (Zofran) 4 mg IVPUSH ONETIME ONE Stop: 10/16/16 10:58 Last Admin: 10/16/16 11:18 Dose: 4 mg Ondansetron HCl (Zofran) Confirm Administered Dose 4 mg .ROUTE .STK-MED ONE Stop: 10/16/16 14:33 Propofol (Diprivan 20 Ml) Confirm Administered Dose 200 mg .ROUTE .STK-MED ONE Stop: 10/16/16 14:34 Rocuronium [place] (Zemuron) Confirm Administered Dose 100 mg .ROUTE .STK-MED ONE Stop: 10/16/16 14:33 Succinylcholine Chloride (Succinylcholine In Ns Pf) Confirm Administered Dose 200 mg .ROUTE .STK-MED ONE Stop: 10/16/16 14:33 - Exam General: Reports: Alert, Oriented Lungs: Reports: Normal Respiratory Effort Cardiovascular: Reports: Regular Rhythm GI/Abdominal Exam: Soft, Non-Tender, Distended (mild) Extremities: Normal Inspection, Normal Range of Motion *Q Meaningful Use (DIS) - VTE *Q VTE Criteria *Q: - Stroke *Q Stroke Criteria *Q: - AMI *Q AMI Criteria *Q:
[2016-10-18] MEDS ORDERED: metroNIDAZOLE 250 MG Tab PO SCH (09:15)
[2016-10-18] MEDS ORDERED: Ciprofloxacin 500 MG Tab PO SCH (09:15)
--- NOTE | 2016-10-18 13:42 | CT ---
EXAM DATE: 10/17/16 PATIENT'S AGE: 71 Patient: JON REEVES Facility: [place], [place] Site . Site : [id number] Study: CT Abdomen/Pelvis [id number]/9/2017 12:34:33 PM Ordering Physician: Doctor Licea Final Report: INDICATION: Right lower quadrant abdomen pain. TECHNIQUE: CT abdomen and pelvis acquired with 100 cc Isovue 370 IV contrast. COMPARISON: August 31, 2008. FINDINGS: LOWER CHEST: Unremarkable. LIVER: Left liver lobe is absent. There is diffuse fatty infiltration. No focal lesion. GALLBLADDER AND BILE DUCTS: Status post cholecystectomy. No biliary dilatation. PANCREAS: Unremarkable. No mass or inflammation. SPLEEN: Unremarkable. Normal in size. No masses. ADRENAL GLANDS: Unremarkable. No nodules. KIDNEYS: Unremarkable. No masses, stones, or hydronephrosis. GI TRACT: The appendix is inflamed and dilated measuring up to 10 mm. A fecalith is present at the origin of the appendix. No sign of abscess or perforation. GI tract is normal in caliber and appearance. VASCULATURE: Unremarkable. LYMPH NODES: No lymphadenopathy. OMENTUM/PERITONEUM/ABDOMINAL WALL: Unremarkable. No sign of mass or infiltration. No free air or significant free fluid. PELVIS: Stable prostate gland hypertrophy. BONES: Unremarkable for age. IMPRESSION: Acute uncomplicated appendicitis. Dictated by Avtar Faulkner MD @ 10/16/2016 1:23:06 PM Dictated by: Avtar Faulkner MD @ 10/16/2016 13:23:15 (Electronic Signature) Report Signed by Proxy. [facility] HOSPITALYuridia
--- NOTE | 2016-10-18 15:16 | OR ---
SURGEON: NURIS TORIBIO MD DATE OF PROCEDURE: 10/16/2016 PREOPERATIVE DIAGNOSIS: Acute appendicitis. POSTOPERATIVE DIAGNOSIS: Acute appendicitis. PROCEDURES PERFORMED: Laparoscopic appendectomy. ANESTHESIA: General endotracheal anesthesia. FLUIDS: 1500 mL of crystalloid. URINE OUTPUT: 300 mL. ESTIMATED BLOOD LOSS: 10 mL. FINDINGS: Acutely inflamed and partially necrotic gallbladder. No evidence of intraperitoneal spillage or perforation. COMPLICATIONS: None. INDICATIONS: The patient is a 71-year-old male, who developed acute lower abdominal pain late yesterday afternoon. The patient presented to the emergency room, and a CT showed acute appendicitis associated with a fecalith. The patient and I discussed the pathophysiology of appendicitis and the treatment. We discussed laparoscopic and open appendectomy procedure. I will attempt to take it out laparoscopically, but should I be unable to do that safely, we will convert to open. We discussed the risks including bleeding, infection, or damage to surrounding structures. I expressed my concern that the patient may also have a secondary process going on that is causing the appendicitis, such as a malignancy. Should there be any evidence of malignancy, we may need to do a more extensive procedure. The patient verbalized understanding and wishes to proceed. PROCEDURE IN DETAIL: The patient was brought to the OR, and placed on the OR table in supine position. A time-out was completed verifying the patient's name, age, date of , allergies, and procedure to be performed. General endotracheal anesthesia was induced. The patient's left arm was tucked at his side, and a Del Real catheter was placed. The abdomen was prepped and draped in the usual standard fashion. I anesthetized an area two fingerbreadths below the left subcostal margin along the midclavicular line. The 0.5% Marcaine plain was used. An 11-blade was used to make a 1-cm incision in the skin. A 5-mm optical trocar was used to gain entry into the peritoneum. I was able to visualize all the layers of the abdominal wall during my dissection. The abdomen was then insufflated. Given the patient's previous surgical history, a 5-mm, 30-degree scope was inserted in the abdomen, and I inspected the abdomen. There were omental adhesions along the lower midline and around the umbilicus. There was an adequate enough space for me to safely perform the laparoscopic appendectomy without taking these down. A 5-mm trocar was placed under direct visualization along the left flank just lateral to the umbilicus, and one in the left lower quadrant. The one in the left lower quadrant was a 12-mm port. The patient was placed in a reverse Trendelenburg position and airplaned slightly to the left. I identified the ascending colon and followed the taenia down to the cecum. With gentle manipulation, a small superficial serosal tear was made along the taenia at the base of the cecum. Given this, extra care was taken to not manipulate the tissues. His tissues were very inflamed in the right lower quadrant. Using a suction device, I was able to gently sweep all the small bowel into the upper part of the abdomen, and a partially necrotic and inflamed appendix was noted. This was adhered to the surrounding small bowel. I gently swept these adhesions away, and I was able to grasp the tip of the appendix with an atraumatic grasper. A Harmonic scalpel was used to take down the appendiceal mesentery from the distal tip of the appendix down to the base of the cecum. The base of the appendix did not appear inflamed or necrotic. An endoscopic stapling device was then brought into the field, and a 45-mm blue load of stan was stapled across the base of the healthy-appearing appendiceal base. The appendix was then placed in an EndoCatch bag and removed through the 12-mm port site. The 12-mm port was replaced, and I re-inspected the right lower quadrant. The cecum appeared to be intact, and the staple line appeared healthy. The appendiceal mesentery was hemostatic. I irrigated the lower abdomen with 1 L of normal saline and suctioned this out. The 12-mm port was then removed, and a Robbi-Brittany needle was used to close the fascial site. This was closed with an 0 Vicryl suture. I closely inspected the area to ensure that there was no bleeding or expanding hematoma at this site. None was noted. The remainder of the ports were then removed under direct visualization, and the abdomen was allowed to desufflate. WOUND CLOSURE: The 12-mm port site was then closed with interrupted 3-0 Vicryl suture in the subcutaneous space and a running 4-0 Monocryl suture in the subcuticular space. The remainder of the port sites were closed with interrupted 4-0 Monocryl sutures. Steri-Strips and sterile dressings were applied. POSTOPERATIVE CONDITION/DISPOSITION: The patient was extubated and taken to the PACU in stable condition. KAYLAH URIOSTEGUI /[id number]
== END 2016-10-18 10:10 | disposition home or self-care (01) ==
LOC: MW.ED 10:24 → MW.MS 13:54 → MW.SDS 13:54 → UNDOADMIN 14:03 → MW.MS 14:03 → MW.SDS 10-17 08:59
PROVIDERS: ADMIT Surgery; ATTEND Surgery
DX: K35.80 Unspecified acute appendicitis (principal); Z90.49 Acquired absence of other specified parts of digestive tract; Z98.890 Other specified postprocedural states; Z87.891 Personal history of nicotine dependence
CPT/HCPCS: 36415; 44970; 74177; 80053; 81001; 82150; 83690; 85025; 85027; 96361; 96374; 96375; 99285; A9270; J1100; J1170; J1885; J2250; J2270; J2405; J2543; J3010; J7040; J7050; J7120; Q9967; 00840; 88304; 99282; G0378; J2704